=== PATIENT | female | born 1995 | race Caucasian/White ===

== ENCOUNTER 2017-08-21 01:23 | Emergency (ER) | payer OTHER ==
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
[2017-08-21 01:47] VITALS: BP 112/76; PULSE 82; TEMP 98.6; BMI 26.5
[2017-08-21] MEDS ORDERED: KETOROLAC TROMETHAMINE 30 MG/1 ML VIAL IM ONE (01:49)
[2017-08-21] MEDS ORDERED: ACETAMINOPHEN 500 MG TABLET (FP) PO ONE (02:08)
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
== END 2017-08-21 05:09 | disposition home or self-care (01) ==
LOC: JER 01:23
DX: M54.5 Low back pain (principal); M54.2 Cervicalgia; R51 Headache; V43.62XA Car passenger injured in collision with other type car in traffic accident, initial encounter; Y92.410 Unspecified street and highway as the place of occurrence of the external cause; Y93.89 Activity, other specified; Y99.8 Other external cause status
CPT/HCPCS: 99282-25

== ENCOUNTER 2022-08-30 13:01 | Observation (INO) | payer OTHER ==
[2022-08-30] MEDS ORDERED: ACETAMINOPHEN 1000 MG/100 ML BAG IVPB ONE (13:48)
[2022-08-30] MEDS ORDERED: LACTATED RINGERS SOLUTION 1000 ML INFUS.BAG IV ONE ×2 (13:48→14:53)
[2022-08-30] MEDS ORDERED: ACETAMINOPHEN INJECTION 100 ML IVPB ONE (14:40)
[2022-08-30 14:51] LABS: INR 1.07 (0.83-1.09); PROTHROMBIN TIME (PATIENT) 12.4 SEC (9.7-13.0)
[2022-08-30 15:02] LABS: EOS % 3.3 % (0-4.5); HEMATOCRIT 21.6 % (32.4-45.2); LYMPH % 33.1 % (8-40); MCHC 31.4 g/dl (32.0-36.0); MEAN CELL VOLUME 62.5 fl (80-96); MEAN PLT VOLUME 8.3 fl (7.5-11.1); NEUT % 52.6 % (42.8-82.8); PLATELET COUNT 261 10^3/uL (134-434); RBC 3.46 M/mm3 (3.60-5.2); RDW 26.7 % (11.6-15.6); WHITE BLOOD COUNT 4.1 K/mm3 (4.0-10.0)
[2022-08-30 15:04] LABS: VENOUS BASE EXCESS -5.5 mmol/L (-2-2); VENOUS O2 SATURATION 52.1 % (70-80); VENOUS PCO2 24.7 mmHg (38-52); VENOUS PH 7.477 (7.310-7.410)
[2022-08-30 15:04] LABS: MCH 19.6 pg (25.7-33.7)
[2022-08-30 15:05] LABS: POTASSIUM 3.7 mmol/L (3.5-5.1)
[2022-08-30 15:07] LABS: ALBUMIN 3.5 g/dl (3.4-5.0); CALCIUM 8.9 mg/dL (8.5-10.1)
[2022-08-30 15:11] LABS: BILIRUBIN,TOTAL 0.3 mg/dL (0.2-1); TOT PROT 6.8 g/dl (6.4-8.2)
[2022-08-30 15:12] LABS: HEMOGLOBIN 6.8 GM/dL (10.7-15.3)
[2022-08-30 15:33] LABS: ANISOCYTOSIS 3+; MACROCYTOSIS 0
[2022-08-30 15:43] LABS: EPI CELLS >36 /uL (0-25.1); HYALINE CASTS 4 /uL (0-3.1); PH,URINE 5.5 (5.0-8.0); URINE APPEARANCE CLEAR; URINE BILIRUBIN NEGATIVE (NEGATIVE); URINE COLOR YELLOW; URINE GLUCOSE (UA) NEGATIVE (NEGATIVE); URINE KETONE TRACE (NEGATIVE); URINE LEUK ESTERASE 1+ (NEGATIVE); URINE NITRITE NEGATIVE (NEGATIVE); URINE PROTEIN NEGATIVE (NEGATIVE); URINE RBC 55 /uL (0-23.9); URINE UROBILINOGEN 0.2 mg/dL (0.2-1.0); URINE WBC 22 /uL (0-25.8)
[2022-08-30 15:49] LABS: URINE BACTERIA 93 /uL (0-1359)
[2022-08-30 22:22] VITALS: BMI 28.7
[2022-08-31] MEDS ORDERED: SODIUM CHLORIDE 1,000 ML IV STA ×2 (00:08→00:10)
[2022-08-31] MEDS ORDERED: ACETAMINOPHEN 1000 MG/100 ML BAG IVPB ONE (00:23)
[2022-08-31] MEDS ORDERED: MAG HYDROX/AL HYDROX/SIMETH 30 ML UNIT-DOSE CUP PO ONE (00:26)
[2022-08-31 05:37] VITALS: TEMP 98.4
[2022-08-31 08:17] LABS: HEMATOCRIT 21.4 % (32.4-45.2); HEMOGLOBIN 7.2 GM/dL (10.7-15.3); MCH 22.6 pg (25.7-33.7); MCHC 33.7 g/dl (32.0-36.0); MEAN PLT VOLUME 8.4 fl (7.5-11.1); PLATELET COUNT 206 10^3/uL (134-434); RBC 3.19 M/mm3 (3.60-5.2); RDW 29.2 % (11.6-15.6); WHITE BLOOD COUNT 6.1 K/mm3 (4.0-10.0)
[2022-08-31 08:31] LABS: MEAN CELL VOLUME 67.1 fl (80-96)
[2022-08-31] MEDS ORDERED: FERROUS SO4 325 MG TABLET (FP) PO SCH (10:00)
[2022-08-31 11:03] VITALS: BP 108/76; PULSE 79; RESP 20
== END 2022-08-31 14:30 | disposition home or self-care (01) ==
LOC: JER 13:01 → JERBED 15:29 → J6S 20:52
PROVIDERS: ADMIT Internal Medicine; ATTEND Internal Medicine
PROC: 30233N1 Transfusion of Nonautologous Red Blood Cells into Peripheral Vein, Percutaneous Approach (ICD-10-PCS; principal; 2022-08-30)
PROC: 3E033NZ Introduction of Analgesics, Hypnotics, Sedatives into Peripheral Vein, Percutaneous Approach (ICD-10-PCS; 2022-08-30)
PROC: 3E0337Z Introduction of Electrolytic and Water Balance Substance into Peripheral Vein, Percutaneous Approach (ICD-10-PCS; 2022-08-30)
DX: D50.0 Iron deficiency anemia secondary to blood loss (chronic) (principal); O03.8 Other and unspecified complications following complete or unspecified spontaneous abortion
CPT/HCPCS: 0241U-QW; 36415; 36430; 36511; 71045-TC-FY; 76817-TC; 80053; 81003; 82803; 83605; 84702; 85025; 85027; 85610; 85730; 86850; 86900; 86901; 86922; 87040; 87077; 87086; 93005; 93010; 96361; 96374; 96376; 99285-25; G0378; P9038; P9058

== ENCOUNTER 2023-02-16 20:10 | Emergency (ER) | payer OTHER ==
[2023-02-16 20:18] VITALS: BP 109/71; PULSE 108; RESP 18; TEMP 98.1; BMI 26.5
[2023-02-16 21:27] LABS: BASO % 0.6 % (0-2.0); EOS % 2.7 % (0-4.5); HEMATOCRIT 30.2 % (32.4-45.2); HEMOGLOBIN 9.6 GM/dL (10.7-15.3); LYMPH % 26.7 % (8-40); MCHC 31.7 g/dl (32.0-36.0); MEAN CELL VOLUME 62.6 fl (80-96); MEAN PLT VOLUME 8.6 fl (7.5-11.1); MONO % 6.8 % (3.8-10.2); NEUT % 63.2 % (42.8-82.8); PLATELET COUNT 298 10^3/uL (134-434); RBC 4.82 M/mm3 (3.60-5.2); RDW 23.1 % (11.6-15.6); WHITE BLOOD COUNT 5.6 K/mm3 (4.0-10.0)
[2023-02-16 21:27] LABS: PH,URINE 5.5 (5.0-8.0); URINE APPEARANCE CLEAR; URINE BILIRUBIN NEGATIVE (NEGATIVE); URINE COLOR YELLOW; URINE GLUCOSE (UA) NEGATIVE (NEGATIVE); URINE KETONE NEGATIVE (NEGATIVE); URINE LEUK ESTERASE NEGATIVE (NEGATIVE); URINE NITRITE NEGATIVE (NEGATIVE); URINE PROTEIN NEGATIVE (NEGATIVE)
[2023-02-16 21:30] LABS: MCH 19.8 pg (25.7-33.7)
[2023-02-16 21:37] LABS: INR 1.01 (0.83-1.09); PROTHROMBIN TIME (PATIENT) 11.7 SEC (9.7-13.0)
[2023-02-16 21:40] LABS: ACTIVATED PTT 30.2 SECONDS (25.2-36.5)
[2023-02-16 21:48] LABS: CALCIUM 8.6 mg/dL (8.5-10.1)
[2023-02-16 21:49] LABS: ALBUMIN 3.7 g/dl (3.4-5.0); BLOOD UREA NITROGEN 16.7 mg/dL (7-18)
[2023-02-16 21:53] LABS: BILIRUBIN,TOTAL 0.2 mg/dL (0.2-1); CREATININE 0.7 mg/dL (0.55-1.3); TOT PROT 7.6 g/dl (6.4-8.2)
== END 2023-02-16 22:08 | disposition home or self-care (01) ==
LOC: JER 20:10
DX: O03.9 Complete or unspecified spontaneous abortion without complication (principal); O26.891 Other specified pregnancy related conditions, first trimester; R10.2 Pelvic and perineal pain
CPT/HCPCS: 36415; 76815; 80053; 81003; 84702; 85025; 85610; 85730; 86850; 86870; 86900; 86901; 86902; 87086; 99284-25

== ENCOUNTER 2023-02-17 16:20 | Emergency (ER) | payer OTHER ==
[2023-02-17 16:46] VITALS: BP 95/66; PULSE 77; RESP 17; TEMP 98.1; BMI 25.0
[2023-02-17 18:49] LABS: BASO % 0.4 % (0-2.0); EOS % 2.3 % (0-4.5); HEMATOCRIT 30.7 % (32.4-45.2); HEMOGLOBIN 9.7 GM/dL (10.7-15.3); LYMPH % 28.2 % (8-40); MCHC 31.7 g/dl (32.0-36.0); MEAN CELL VOLUME 62.3 fl (80-96); MEAN PLT VOLUME 8.6 fl (7.5-11.1); NEUT % 61.1 % (42.8-82.8); PLATELET COUNT 325 10^3/uL (134-434); RBC 4.93 M/mm3 (3.60-5.2); RDW 23.3 % (11.6-15.6); WHITE BLOOD COUNT 5.6 K/mm3 (4.0-10.0)
[2023-02-17 18:52] LABS: MCH 19.7 pg (25.7-33.7)
[2023-02-17 19:24] LABS: POTASSIUM 3.9 mmol/L (3.5-5.1)
[2023-02-17 19:26] LABS: CALCIUM 8.8 mg/dL (8.5-10.1)
[2023-02-17 19:27] LABS: ALBUMIN 3.7 g/dl (3.4-5.0)
[2023-02-17 19:30] LABS: CREATININE 0.7 mg/dL (0.55-1.3)
[2023-02-17 19:31] LABS: BILIRUBIN,TOTAL 0.2 mg/dL (0.2-1); TOT PROT 7.7 g/dl (6.4-8.2)
[2023-02-17] MEDS ORDERED: SODIUM CHLORIDE 0.9% 1000 ML INFUS.BAG IV ONE (19:44)
== END 2023-02-17 21:18 | disposition home or self-care (01) ==
LOC: JER 16:20
DX: O20.0 Threatened abortion (principal); O26.891 Other specified pregnancy related conditions, first trimester; R10.30 Lower abdominal pain, unspecified; O99.011 Anemia complicating pregnancy, first trimester; D50.9 Iron deficiency anemia, unspecified
CPT/HCPCS: 36415; 76830-TC; 80053; 84702; 85025; 99284-25

== ENCOUNTER 2023-08-29 04:40 | Inpatient (IN) | payer OTHER ==
[2023-08-29] MEDS ORDERED: AMPICILLIN SODIUM 2 GM VIAL ONE (05:15)
[2023-08-29] MEDS: ELECTROLYTE-148 SOLN 500 ML IV SCH (05:20)
[2023-08-29] MEDS: AMPICILLIN - 2 GM in SODIUM CHLORIDE 100 ML IVPB ONE (05:20)
[2023-08-29 05:33] VITALS: BMI 29.9
[2023-08-29] MEDS ORDERED: ELECTROLYTE-148 SOLN 500 ML IV SCH (05:35)
[2023-08-29 06:31] LABS: BASO % 0.6 % (0-2.0); EOS % 1.7 % (0-4.5); HEMATOCRIT 33.5 % (32.4-45.2); HEMOGLOBIN 10.7 GM/dL (10.7-15.3); MCH 24.6 pg (25.7-33.7); MEAN CELL VOLUME 76.8 fl (80-96); MEAN PLT VOLUME 8.9 fl (7.5-11.1); MONO % 7.3 % (3.8-10.2); NEUT % 62.4 % (42.8-82.8); PLATELET COUNT 225 10^3/uL (134-434); RBC 4.36 M/mm3 (3.60-5.2); RDW 13.3 % (11.6-15.6); WHITE BLOOD COUNT 6.5 K/mm3 (4.0-10.0)
[2023-08-29 06:32] LABS: INR 0.95 (0.83-1.09); PROTHROMBIN TIME (PATIENT) 10.7 SEC (9.7-13.0)
[2023-08-29 06:35] LABS: ACTIVATED PTT 29.5 SECONDS (25.2-36.5)
[2023-08-29 06:39] LABS: POTASSIUM 3.9 mmol/L (3.5-5.1)
[2023-08-29 06:40] LABS: CALCIUM 8.5 mg/dL (8.5-10.1)
[2023-08-29 06:41] LABS: BLOOD UREA NITROGEN 8.8 mg/dL (7-18)
[2023-08-29 06:44] LABS: CREATININE 0.7 mg/dL (0.55-1.3)
[2023-08-29] MEDS ORDERED: FENTANYL/BUPIVACAINE/NS/PF - PCEA - 50 ML DISP.SYRIN EP ONE ×2 (06:48→11:24)
[2023-08-29] MEDS ORDERED: NALOXONE HCL 0.4 MG/ML VIAL IVPUSH PRN (07:10)
[2023-08-29] MEDS ORDERED: FENTANYL CITRATE/PF 50 MCG/ML VIAL ONE ×5 (07:17→12:26)
[2023-08-29] MEDS ORDERED: BUPIVACAINE HCL/PF 0.25% (2.5MG/ML) 10 ML VIAL ONE (07:17)
[2023-08-29] MEDS: FENTANYL/BUPIVACAINE/NS/PF - PCEA - 50 ML DISP.SYRIN EP SCH (07:20)
[2023-08-29] MEDS: ELECTROLYTE-148 SOLN 1,000 ML IV SCH (07:30)
[2023-08-29] MEDS ORDERED: AMPICILLIN SODIUM 1 GM VIAL ONE (08:54)
[2023-08-29] MEDS: AMPICILLIN - 1 GM in SODIUM CHLORIDE 100 ML IVPB SCH (09:00)
[2023-08-29] MEDS ORDERED: PROPOFOL 40 ML ONE (11:46)
[2023-08-29] MEDS ORDERED: SUCCINYLCHOLINE CHLORIDE 200 MG/10 ML SYRINGE ONE (11:46)
[2023-08-29] MEDS ORDERED: OXYTOCIN 20 UNITS in 0.9% NS 20 UNIT/1,000 ML INFUS.BAG IV ONE (12:10)
[2023-08-29] MEDS: OXYTOCIN 20 UNITS in 0.9% NS 20 UNIT/1,000 ML INFUS.BAG IV SCH (13:00)
[2023-08-29] MEDS ORDERED: BISACODYL 10 MG SUPP.RECT RC PRN (13:22)
[2023-08-29] MEDS ORDERED: METHYLERGONOVINE MALEATE 0.2 MG/1 ML AMP IM PRN (13:22)
[2023-08-29] MEDS ORDERED: BENZOCAINE 28 GM HEMORRHOIDAL OINTMENT TP PRN (13:22)
[2023-08-29] MEDS ORDERED: oxyCODONE HCL 5 MG TABLET PO PRN (13:22)
[2023-08-29] MEDS ORDERED: ACETAMINOPHEN 325 MG TABLET (FP) PO PRN (13:22)
[2023-08-29] MEDS ORDERED: BENZOCAINE 20% 57 GM BOTTLE TP PRN (13:22)
[2023-08-29] MEDS ORDERED: WITCH HAZEL 50% (TUCKS) 40 PAD/JAR PAD TP PRN (13:22)
[2023-08-30 07:58] LABS: BASO % 0.3 % (0-2.0); EOS % 1.3 % (0-4.5); HEMATOCRIT 27.6 % (32.4-45.2); HEMOGLOBIN 9.1 GM/dL (10.7-15.3); LYMPH % 17.8 % (8-40); MCH 25.6 pg (25.7-33.7); MCHC 33.1 g/dl (32.0-36.0); MEAN CELL VOLUME 77.4 fl (80-96); MEAN PLT VOLUME 8.5 fl (7.5-11.1); MONO % 6.6 % (3.8-10.2); PLATELET COUNT 199 10^3/uL (134-434); RBC 3.57 M/mm3 (3.60-5.2); RDW 13.3 % (11.6-15.6); WHITE BLOOD COUNT 8.6 K/mm3 (4.0-10.0)
[2023-08-30] MEDS: PRENATAL VITAMINS W/ FOLIC ACID TABLET (FP) PO SCH (11:29)
[2023-08-30] MEDS: IBUPROFEN 600 MG TABLET (FP) PO PRN (19:52)
[2023-08-30] MEDS: SENNOSIDES/DOCUSATE COMBO (SENNA PLUS) TABLET (UD) PO PRN (19:53)
[2023-08-30 22:23] VITALS: RESP 17
[2023-08-31 08:51] VITALS: BP 115/55; PULSE 89; TEMP 98.2
== END 2023-08-31 14:40 | disposition home or self-care (01) | DRG 560 ==
LOC: JDEL 04:40 → JLDR 05:00 → J3W 15:45
PROVIDERS: ADMIT Obstetrics & Gynecology; ATTEND Obstetrics & Gynecology
PROC: 10E0XZZ Delivery of Products of Conception, External Approach (ICD-10-PCS; principal; 2023-08-29)
DX: O99.03 Anemia complicating the puerperium (principal); D64.9 Anemia, unspecified; O99.824 Streptococcus B carrier state complicating childbirth; Z3A.38 38 weeks gestation of pregnancy; Z37.0 Single live birth
CPT/HCPCS: 36415; 80048; 85025; 85610; 85730; 86780; 86850; 86870; 86880; 86900; 86901; 86902; 86922